=== PATIENT | male | born 1995 | race African-American/Black ===

== ENCOUNTER 2018-10-07 18:36 | Emergency (ER) | payer OTHER ==
[~2018-10-07] VITALS: Ht 177.8 cm; Wt 80.7 kg
[2018-10-07] MEDS ORDERED: MOBIC15 MG PO (21:11)
[2018-10-07] MEDS ORDERED: CYCLOBENZAPRINE5 MG PO (21:11)
[2018-10-07 21:45] VITALS: BP 117/69
== END 2018-10-07 21:46 | disposition home or self-care (01) ==
LOC: ER 18:36
DX: S16.1XXA Strain of muscle, fascia and tendon at neck level, initial encounter (principal); R51 Headache; V49.49XA Driver injured in collision with other motor vehicles in traffic accident, initial encounter; Y93.89 Activity, other specified; Y92.488 Other paved roadways as the place of occurrence of the external cause; Y99.8 Other external cause status